=== PATIENT | female | born 1975 | race Caucasian/White ===

== ENCOUNTER → 2016-03-29 | Outpatient (CLI) | payer OTHER ==
[2016-03-29 15:24] LABS: BILIRUBIN,URINE SMALL (NEG); CLARITY,URINE CLEAR (CLEAR); GLUCOSE, URINE (UA) NEGATIVE (NEG); LEUKOCYTE ESTERASE ,URINE NEGATIVE (NEG); NITRATE,URINE NEGATIVE (NEG); OCCULT BLOOD,URINE SMALL (NEG); PH,URINE 5.5 (5.0-8.5); PROTEIN,URINE TRACE mg/dl (NEG); SQUAMOUS EPITHELIAL CELL,UR MANY; URINE SAMPLE TYPE CLEAN CATCH URINE; UROBILINOGEN,URINE 0.2 mg/dL (0.2); WBC,URINE 0-3
[2016-03-29 15:25] LABS: BACTERIA,URINE RARE
== END ==
LOC: LAB 15:00
PROVIDERS: ATTEND Family Medicine
DX: N39.3 Stress incontinence (female) (male) (principal)
CPT/HCPCS: 81001; 87088

== ENCOUNTER 2016-04-12 06:46 | Day surgery (SDC) | payer OTHER ==
[~2016-04-12 06:46] MED LIST: LIDOCAINE W/ SODIUM BICARB 0.5 ML SYR ONE; Lactated Ringers 1,000 ML PRIMARY IV ONE; Sodium Chloride 0.9% 100 ML IV ONE
[2016-04-12] MEDS ORDERED: fentaNYL Inj 250 MCG/5 ML VIAL ONE (07:10)
[2016-04-12] MEDS ORDERED: MIDAZOLAM 5 MG/1 ML ONE (07:10)
[2016-04-12] MEDS ORDERED: LIDOCAINE MPF 2% - 5 ML (20 MG/1 ML) ONE (07:10)
[2016-04-12] MEDS ORDERED: ROCURONIUM 10 MG/1 ML - 5 ML VIAL IVP ONE (07:17)
[2016-04-12 07:33] LABS: CLARITY,URINE CLEAR (CLEAR); URINE SAMPLE TYPE CLEAN CATCH URINE
[2016-04-12 07:34] LABS: BACTERIA,URINE RARE; BILIRUBIN,URINE NEGATIVE (NEG); GLUCOSE, URINE (UA) NEGATIVE (NEG); LEUKOCYTE ESTERASE ,URINE NEGATIVE (NEG); NITRATE,URINE NEGATIVE (NEG); OCCULT BLOOD,URINE SMALL (NEG); PH,URINE 5.5 (5.0-8.5); PROTEIN,URINE NEGATIVE (NEG); RBC,URINE 0-1 /hpf; SQUAMOUS EPITHELIAL CELL,UR MODERATE; UROBILINOGEN,URINE 0.2 EU/dL (0.2); WBC,URINE 0-1
[2016-04-12] MEDS ORDERED: SUCCINYLCHOLINE CHLORIDE 20 MG/1 ML - 10 ML ONE (07:39)
[2016-04-12] MEDS ORDERED: NORMAL SALINE 10 ML SYRINGE FLUSH IVP PRN (08:09)
[2016-04-12] MEDS ORDERED: Ondansetron ODT Tab 8 MG TAB PO PRN (08:09)
[2016-04-12] MEDS ORDERED: IBUPROFEN 800 MG TABLET PO PRN (08:09)
[2016-04-12] MEDS ORDERED: HYDROcodone-APAP 5 MG -325 MG TABLET PO PRN (08:09)
[2016-04-12] MEDS ORDERED: Lactated Ringers 1,000 ML PRIMARY IV ONE (08:09)
--- NOTE | 2016-04-12 08:12 | OB.OP.NOTE ---
Operative Report Surgeon: Khadar Migrant Leader: Shashi Chun MD Anesthesia Type: General Anesthesia Provider: Camacho Gay CRNA Surgery Date: 04/12/16 Preoperative Diagnosis: JENNY Postoperative Diagnosis: Same Procedure: TVT-O Estimated Blood Loss (mL): 20 Fluids: 1000 ml Complications: None Findings at Surgery: Good placement of TVT mesh without tension. Indications for the Procedure: JENNY Description of Procedure: See dictated operative report. Plan: Routine post op care and discharge to home.
[2016-04-12] MEDS ORDERED: KETOROLAC 30 MG/1 ML VIAL ONE (08:21)
[2016-04-12 10:09] VITALS: RESP 16
[2016-04-12 10:11] VITALS: TEMP 97.6
== END 2016-04-12 09:44 | disposition home or self-care (01) ==
LOC: SDSC 06:46
PROVIDERS: ATTEND Obstetrics & Gynecology
DX: N39.3 Stress incontinence (female) (male) (principal)
CPT/HCPCS: 57288; 81001; J0694; J1885; J2704; J3010; J0330; J2001; J2250; J7050; J7120

== ENCOUNTER → 2016-04-22 | Outpatient (CLI) | payer OTHER ==
[2016-04-22 15:54] LABS: HEMATOCRIT 40.8 % (37.0-47.0); MEAN CORPUSCULAR HEMOGLOBIN 29.8 PG (27-31); MEAN CORPUSCULAR HGB CONC 34.3 g/dL (33-37); MEAN PLATELET VOLUME 9.2 FL (7.4-12.2); RED BLOOD COUNT 4.7 10^6/uL (4.20-5.40); WHITE BLOOD COUNT 8.33 10^3/uL (4.8-10.8)
--- NOTE | 2016-04-22 16:03 | EKG ---
[address] [address] Measurements Intervals [place] Rate: 63 P: 48 SC: 185 QRS: -7 QRSD: 94 T: 34 QT: 404 QTc: 411 Interpretive Statements SINUS RHYTHM Compared to ECG 01/30/2016 16:24:00 Sinus arrhythmia no longer present Electronically Signed On 04-23-16 08:52:36 MST by Leobardo Jasmine MD [email or web address]
[2016-04-22 16:52] LABS: ASPARTATE AMINO TRANSFERASE 18 IU/L (8-39); BILIRUBIN,TOTAL 0.3 mg/dL (0.3-1.2); BLOOD UREA NITROGEN 11 mg/dL (7-22); BUN/CREATININE RATIO 13.75 (6-20); CALCIUM 9.1 mg/dL (8.7-10.7); CHLORIDE 105 meq/L (98-112); CREATININE 0.8 mg/dL (0.50-1.20); EST GLOMERULAR FILTRATION > 60 (>60 ml/min/1.73m(2)); GLUCOSE 111 mg/dL (78-110); SODIUM 140 meq/L (135-145); TOTAL PROTEIN 7.3 g/dL (6.1-8.0)
== END ==
LOC: LAB 15:35
PROVIDERS: ATTEND Anesthesiology
DX: Z01.812 Encounter for preprocedural laboratory examination (principal); M54.5 Low back pain; M79.604 Pain in right leg; M79.605 Pain in left leg
CPT/HCPCS: 36415; 80053; 85027; 93005; 93010

== ENCOUNTER → 2016-08-19 | Outpatient (CLI) | payer OTHER ==
--- NOTE | 2016-08-20 14:37 | DI ---
RIGHT KNEE, 08/19/2016 11:01 AM: Clinical History: Right knee pain. Previous Exam: None at this facility. 4 views are submitted. The AP and tunnel projections are weight bearing views. There is no acute soft tissue, osseous, or joint abnormality. Reading: Normal right knee exam.
== END ==
LOC: ORTHO 11:15
PROVIDERS: ATTEND Physician Assistant
DX: S89.81XA Other specified injuries of right lower leg, initial encounter (principal); V89.2XXA Person injured in unspecified motor-vehicle accident, traffic, initial encounter; Y93.89 Activity, other specified; Y92.411 Interstate highway as the place of occurrence of the external cause
CPT/HCPCS: 73564

== ENCOUNTER → 2016-09-24 | Outpatient (CLI) | payer OTHER ==
--- NOTE | 2016-09-24 22:55 | DI ---
MRI LOW EXTREMITY JNT W/O CN,09/24/2016 10:04 AM: Clinical History: Right knee pain. Previous Exam: None at this facility. Note: The patient had an MRI safe neurostimulator device which was placed in the MRI mode Findings: Multiplanar MR images are obtained through the right knee without contrast. Bony alignment is anatomi c. There is mild thinning of the articular cartilage. There are no full-thickness osteochondral defec ts. Major vascular flow voids are unremarkable. There is no evidence of Jiménez's cyst. Signal within the musculature is unremarkable. The anterior and posterior cruciate ligaments are intact. The medial and lateral collateral ligaments are also intact. There is some mild grade 2 signal within the posterior horn of the medial meniscus without a definite tear. There is a very small knee joint effusion. The quadriceps and patellar tendons are intact. Impression: 1. Mild increased T2 signal within the posterior horn of the medial meniscus which approaches the und ersurface, and may represent a small oblique tear. 2. Small knee joint effusion. 3. Minimal chondromalacia tricompartmentally.
== END ==
LOC: MRI 10:01
PROVIDERS: ATTEND Physician Assistant
DX: M25.561 Pain in right knee (principal); M25.461 Effusion, right knee; M94.261 Chondromalacia, right knee
CPT/HCPCS: 73721

== ENCOUNTER 2016-11-19 13:28 | Day surgery (SDC) | payer OTHER ==
[~2016-11-19 13:28] MED LIST changes: -Sodium Chloride 0.9% 100 ML IV ONE; +ceFAZolin Inj 2gm (Premix) 50 ML IV ONE
[2016-11-19 14:06] VITALS: RESP 14; TEMP 97.1
[2016-11-19] MEDS ORDERED: IPRATROPIUM/ALBUTEROL SULFATE 3 ML NEB NEB ONE ×2 (14:16→14:17)
[2016-11-19] MEDS ORDERED: Ropivacaine 0.2% VIAL 20 ML ONE (14:26)
[2016-11-19] MEDS ORDERED: EPINEPHrine Inj (1:1,000) 30mg/30ml vial ONE (14:26)
[2016-11-19] MEDS ORDERED: fentaNYL Inj 250 MCG/5 ML VIAL ONE (14:38)
[2016-11-19] MEDS ORDERED: MIDAZOLAM 5 MG/1 ML ONE (14:38)
[2016-11-19] MEDS ORDERED: LIDOCAINE MPF 2% - 5 ML (20 MG/1 ML) ONE (14:39)
[2016-11-19] MEDS ORDERED: Lactated Ringers 1,000 ML PRIMARY IV ONE (15:30)
[2016-11-19] MEDS ORDERED: BETAMET ACET/BETAMET NA PH 6 MG/1 ML - 5 ML ONE (15:35)
[2016-11-19] MEDS ORDERED: KETOROLAC 30 MG/1 ML VIAL ONE (15:38)
[2016-11-19] MEDS: HYDROcodone-APAP 7.5 MG-325 MG TABLET PO ONE ×2 (16:00→16:14)
[2016-11-19] MEDS ORDERED: ACETAMINOPHEN 325 MG TABLET PO PRN (16:01)
[2016-11-19] MEDS ORDERED: ONDANSETRON 4 MG/2 ML VIAL IVP PRN (16:01)
[2016-11-19] MEDS ORDERED: BISACODYL 5 MG TABLET PO PRN (16:01)
[2016-11-19] MEDS ORDERED: Ondansetron ODT Tab 8 MG TAB PO PRN (16:01)
[2016-11-19] MEDS ORDERED: HYDROmorphone 2 MG/1 ML IVP PRN (16:01)
[2016-11-19] MEDS ORDERED: Prochlorperazine Tab 10 MG TAB PO PRN (16:01)
[2016-11-19] MEDS ORDERED: MAG HYDROX/AL HYDROX/SIMETH 30 ML SUSP PO PRN (16:01)
[2016-11-19] MEDS ORDERED: CALCIUM CARBONATE 500 MG (TUMS) CHEWABLE TABLET PO PRN (16:01)
[2016-11-19] MEDS ORDERED: BISACODYL 10 MG SUPPOSITORY RECTAL PRN (16:01)
[2016-11-19] MEDS ORDERED: IBUPROFEN 400 MG TABLET PO PRN (16:01)
[2016-11-19] MEDS ORDERED: NORMAL SALINE 10 ML SYRINGE FLUSH IVP PRN (16:01)
[2016-11-19] MEDS ORDERED: HYDROcodone-APAP 7.5 MG-325 MG TABLET PO PRN (16:01)
[2016-11-19] MEDS ORDERED: diphenhydrAMINE 25 MG CAPSULE PO PRN (16:01)
[2016-11-19] MEDS ORDERED: HYDROcodone-APAP 7.5 MG-325 MG TABLET PO ONE (16:15)
[2016-11-19] MEDS ORDERED: Lactated Ringers 1,000 ML PRIMARY IV SCH (16:15)
[2016-11-19] MEDS: HYDROmorphone 2 MG/1 ML ONE ×2 (16:17→16:25)
--- NOTE | 2016-11-22 09:35 | OPS CRUTCH ---
Diagnosis : Status Post Right Knee Scope/Debridement Referral Reason: Gait Training/Knee Cryo Cuff O: The patient was instructed in the use of crutches with gait belt, both on level surfaces and up and down a flight of stairs, weight-bearing as tolerated. The patient was also issued a knee Cryo-Cuff and instructed in its proper use and care. P: No further therapy is indicated at this time. MTDD
== END 2016-11-19 17:25 | disposition home or self-care (01) ==
LOC: SDSC 13:28
PROVIDERS: ATTEND Orthopaedic Surgery
DX: S83.91XA Sprain of unspecified site of right knee, initial encounter (principal); S83.241A Other tear of medial meniscus, current injury, right knee, initial encounter
CPT/HCPCS: 29876; 94640; J0171; J0690; J0702; J1170; J1885; J2001; J2250; J2704; J2795; J3010; J7620; J7120